=== PATIENT | female | born 1985 | race Caucasian/White ===

== ENCOUNTER 2016-09-30 20:01 | Emergency (ER) | payer MEDICAID, OTHER ==
[~2016-09-30] VITALS: Ht 154.9 cm; Wt 60.0 kg
[2016-09-30 20:01] VITALS: BP 109/67; PULSE 84; RESP 16; TEMP 98.2; O2SAT 100
[~2016-09-30 20:01] MED LIST: AZIT500I PO; DOXY100T PO
--- NOTE | 2016-09-30 20:33 | PD ---
HPI Chief Complaint: Oral / Dental Pain or Problem Time Seen by Provider: 20:31 Travel History International Travel<30 days: No Contact w/Intl Traveler<30days: No Traveled to known affect area: No History of Present Illness HPI Patient comes in complaining of left lower molar tooth pain ongoing for approximately 2 weeks when broke off while eating a crouton. Patient states over the past couple days pain is getting progressively worse and today pain moved into her left ear. Patient is aching throbbing like in nature. Patient taking ibuprofen for the pain with minimal relief of symptoms. Pain is worse with eating or drinking anything. Patient also has concerns over right pinky finger pain that began today after wrestling around her kids. Patient denies any known direct trauma. Pain is worse with palpation and certain movement. Pain is achy like in nature and radiates proximally. PFSH Past Medical History Blood Disorders: No Diminished Hearing: No Reproductive: Yes (OVARIAN CYST) Immunizations Current: Yes Tetanus Vaccination: < 5 Years Influenza Vaccination: No ?: Not LMP: 09/13/16 : 8 Para: 4 Miscarriage: 2 : 1 Tubal Ligation: Yes Past Surgical History Section: Yes Gynecologic Surgery: Yes (tubal ligation, X 4) Social History Alcohol Use: No Tobacco Use: Yes (08/13 PPD) Substance Use: No Allergies-Medications (Allergen,Severity, Reaction): Coded Allergies: No Known Allergies (Verified , 09/30/16) Reported Meds & Prescriptions Reported Meds & Active Scripts Active Naprosyn (Naproxen) 500 Mg Tab 500 Mg PO Q12HR PRN Clindamycin (Clindamycin HCl) 150 Mg Cap 2 Tab PO Q6H 10 Days Review of Systems Except as stated in HPI: all other systems reviewed are Neg Physical Exam Narrative GENERAL: Well-developed, well nourished, in no acute distress, and non-ill appearing. SKIN: Warm and dry. HEAD: Atraumatic. Normocephalic. EYES: Pupils equal and round. EOMI. No scleral icterus. No injection or drainage. ENT: No nasal bleeding or discharge. Mucous membranes pink and moist. Tympanic membranes pearly ovalle bilaterally. Posterior pharynx is erythematous without exudate. Uvula is midline. Poor dentition with no visible palpable abscess noted. Floor the mouth, submandibular, submental are all soft to palpation. NECK: Trachea midline. No cervical lymphadenopathy. Supple. No nuclear rigidity. CARDIOVASCULAR: Radial pulses 2+ intact bilaterally. Capillary refill less than 2 seconds. RESPIRATORY: No accessory muscle use. No respiratory distress. MUSCULOSKELETAL: No obvious deformities. No clubbing. No cyanosis. No edema. Full range of motion. Wrist: FROM and equal BL with passive flexion, extension, and pronation/supination. Capillary refill less than 2 seconds distal to injury and equal BL. FROM distal to injury and equal BL. Strength distal to injury equal BL. NV intact distal to injury. Flexion and extension of thumb equal BL. Equal strength and movement with abduction/adductions of BL fingers. Devulcanizer Operator strength equal BL. No tenderness to the anatomical snuffbox. Patient reports tenderness to palpation over the proximal phalanx of right pinky finger. NEUROLOGICAL: Awake and alert. No obvious cranial nerve deficits. Motor grossly within normal limits. Normal speech. PSYCHIATRIC: Appropriate mood and affect; insight and judgment normal. Data Data Last Documented VS Vital Signs Date Time Temp Pulse Resp B/P Pulse Ox O2 Delivery O2 Flow Rate FiO2 09/30/16 20:20 16 09/30/16 20:01 98.2 84 109/67 100 Orders Finger (Vkg1exf) (09/30/16 ) Splint Or Brace Apply/Monitor (09/30/16 20:59) Finger Splint (09/30/16 ) MDM Medical Decision Making Medical Screen Exam Complete: Yes Emergency Medical Condition: Yes Differential Diagnosis Dental abscess, dental infection, dentalgia, fracture, sprain, contusion, other Narrative Course The patient presented with dental pain. There is no fever. There is no significant facial swelling or evidence of cellulitis. There is poor dentition but no evidence of drainable abscess at this time. There is no evidence of significant deep or invading abscess at this time. The patient will be placed on antibiotics and pain medication. The patient was instructed to follow up with a dentist. The patient was given the dental referral sheet. Warnings were discussed with the patient regarding worsening of infection. The patient is to return if pain worsens, develops progressive swelling or facial redness or fever. The patient agrees with plan. There is no clinical evidence for fracture. There is no clinical evidence to suspect bony injury by exam. Radiographic examination revealed no fracture seen at this time. No obvious ligamental injury or internal derangement is noted at this time. The distal extremity appears neurovascularly intact, without evidence of neurovascular injury nor compartment syndrome. Tendon exam also was intact. The effected finger was splinted. The patient was discharged on pain medication along with sprain and splint care instructions and given warnings for vascular compromise. The patient is to follow up with primary care provider. The patient agrees with plan. Patient in no obvious distress upon re-evaluation. All pertinent Radiology result(s) discussed with patient. Patient was asked if they wanted to speak to my attending, which the patient did not wish to do at this time. Any questions/ concerns in reference to patient diagnosis/condition discussed and clarified prior to patient's discharge. Reinforced sheer importance of close follow up with patient's primary physician or primary care clinic. Instructed patient to return to ED immediately, if symptoms return/worsen. Pt showed understanding of above instructions. Further instructions and recommendations were detailed in discharge paperwork. Pt ambulated without difficulty out of ED at discharge. Diagnosis Primary Impression: Dentalgia Additional Impression: Sprain of finger of right hand Qualified Code: S63.619A - Sprain of finger of right hand, initial encounter Patient Instructions: Dental Abscess (ED), Dental Caries (DC), Finger Sprain ( ED), General Instructions, Splint Care (DC) Additional Instructions: Follow-up with your primary care physician and dentist as soon as possible. Rinse mouth with warm salt water gargles. Take all medication as prescribed. Wear finger splint as needed for comfort until reevaluated. Return to the emergency department if symptoms get worse. Med/Other Pt SpecificInfo: Prescription(s) given Scripts Naproxen (Naprosyn)500 Mg Gri475 Mg PO Q12HR PRN (PAIN SCALE 1 TO 10) #14 TAB Ref 0 Prov:Jocelyn Rasheed MD 09/30/16 Clindamycin 150 Mg Cap2 Tab PO Q6H 10 Days Ref 0 Prov:Jocelyn Rasheed MD 09/30/16 Disposition: 01 DISCHARGE HOME Condition: Stable Matt Cisneros Sep 30, 2016 20:33
--- NOTE | 2016-09-30 20:54 | RADRPT ---
EXAM DATE/TIME: 09/30/2016 20:55 [facility] COMPARISON: No previous studies available for comparison. INDICATIONS : Right fifth digit pain from trauma. MEDICAL HISTORY : None. SURGICAL HISTORY : None. ENCOUNTER: Initial ACUITY: 1 day PAIN SCORE: 6/10 LOCATION: Right hand FINDINGS: Examination of the fifth digit of the right hand demonstrates no evidence of fracture or dislocation. No radiopaque foreign bodies are seen. The soft tissues are intact. CONCLUSION: Unremarkable examination of the right fifth finger. Jeferson Callahan MD on September 30, 2016 at 20:51 Board Certified Radiologist. This report was verified electronically.
[2016-09-30] MEDS ORDERED: NAPR500 PO (21:01)
[2016-09-30] MEDS ORDERED: CLIN1CAP5 PO (21:01)
== END 2016-09-30 21:30 | disposition home or self-care (01) ==
LOC: NEPB 20:01
DX: K08.89 Other specified disorders of teeth and supporting structures (principal); S63.616A Unspecified sprain of right little finger, initial encounter; H92.02 Otalgia, left ear; F17.210 Nicotine dependence, cigarettes, uncomplicated; X58.XXXA Exposure to other specified factors, initial encounter; Y93.83 Activity, rough housing and horseplay; Y99.8 Other external cause status
CPT/HCPCS: 29130; 73140

== ENCOUNTER 2016-10-11 13:48 | Emergency (ER) | payer MEDICAID ==
[~2016-10-11 13:48] MED LIST changes: -AZIT500I PO; +CLIN1CAP5 PO; -DOXY100T PO; +NAPR500 PO
[2016-10-11 13:50] VITALS: BP 145/102; PULSE 148; RESP 24; TEMP 97.7; O2SAT 92
--- NOTE | 2016-10-11 14:57 | PD ---
HPI Chief Complaint: Oral / Dental Pain or Problem Time Seen by Provider: 14:57 Travel History International Travel<30 days: No Contact w/Intl Traveler<30days: No Traveled to known affect area: No History of Present Illness HPI 31-year-old female presents the emergency Department with worsening dental pain. Patient was seen on 10/01/16, and started on clindamycin and Naprosyn twice daily. Patient is scheduled to have the tooth extracted in 2 days. Patient denies fever or chills but has increasing pain extending into the left ear. She states it is sensitive to hot and cold as well. Patient states that the pain is 10 over 10 at this time. Patient has no swelling of the throat or difficulty swallowing. No significant swelling in the neck as well. Patient has no known drug allergies. PFSH Past Medical History Blood Disorders: No Diminished Hearing: No Reproductive: Yes ([employer] CYST) Immunizations Current: Yes Tetanus Vaccination: < 5 Years ?: Not LMP: 09/14/16 : 8 Para: 4 Miscarriage: 2 : 1 Tubal Ligation: Yes Past Surgical History Section: Yes Gynecologic Surgery: Yes (tubal ligation, X 4) Social History Alcohol Use: No Tobacco Use: Yes (/2 PPD) Substance Use: No Allergies-Medications (Allergen,Severity, Reaction): Coded Allergies: No Known Allergies (Verified , 09/30/16) Reported Meds & Prescriptions Reported Meds & Active Scripts Active Naprosyn (Naproxen) 500 Mg Tab 500 Mg PO Q12HR PRN Clindamycin (Clindamycin HCl) 150 Mg Cap 2 Tab PO Q6H 10 Days Review of Systems Except as stated in HPI: all other systems reviewed are Neg General / Constitutional: No: Fever Eyes: No: Visual changes HENT: Positive: Dental Difficulties, No: Headaches, Vertigo, Lightheadedness, Sore Throat, Rhinitis, Rhinorrhea, Neck Stiffness, Neck Pain, Ear Discharge, Earache Cardiovascular: No: Chest Pain or Discomfort Respiratory: No: Shortness of Breath Gastrointestinal: Positive: Nausea, No: Abdominal Pain Genitourinary: No: Dysuria Musculoskeletal: No: Pain Skin: No Rash Neurologic: No: Weakness Psychiatric: No: Depression Endocrine: No: Polydipsia Hematologic/Lymphatic: No: Easy Bruising Physical Exam Narrative GENERAL: Patient is a moderate distress and tearful. SKIN: Warm and dry. Normal color. Normal turgor. HEAD: Atraumatic. Normocephalic. EYES: Pupils equal and round. No scleral icterus. No injection or drainage. ENT: No nasal bleeding or discharge. Mucous membranes pink and moist. Patient has obvious large caries and the #17 tooth with localized swelling and erythema and tenderness. Sign of Vitaliy angina or airway compromise. No significant tonsillitis or lymphangitis. NECK: Trachea midline. No JVD. Neck is supple nontender. CARDIOVASCULAR: Regular rate and rhythm. RESPIRATORY: No accessory muscle use. Clear to auscultation. Breath sounds equal bilaterally. MUSCULOSKELETAL: Extremities without clubbing, cyanosis, or edema. No obvious deformities. NEUROLOGICAL: Awake and alert. No obvious cranial nerve deficits. Motor grossly within normal limits. Five out of 5 muscle strength in the arms and legs. Normal speech. PSYCHIATRIC: Appropriate mood and affect; insight and judgment normal. Data Data Last Documented VS Vital Signs Date Time Temp Pulse Resp B/P Pulse Ox O2 Delivery O2 Flow Rate FiO2 10/11/16 13:50 97.7 148 24 145/102 92 Room Air Orders Amoxicil-Clavulanate (Augmentin) (10/11/16 15:30) [id number] Liq (Magic Mouthwash Adul (10/11/16 15:30) Ketorolac Inj (Toradol Inj) (10/11/16 15:30) MDM Medical Decision Making Medical Screen Exam Complete: Yes Emergency Medical Condition: Yes Differential Diagnosis Dental pain. Dental abscess. Need for dental follow-up. Narrative Course Patient is in pain but medically stable at time of exam. No suspicion of Vitaliy's angina is present. Patient is given Toradol 60 mg IM, and 875 Augmentin by mouth. Patient is given Magic mouthwash as well. Patient is felt to be medically stable for discharge. Patient is given a prescription for Augmentin 875 twice a day 7 days. Patient is given a prescription for ibuprofen 800 mg 3 times daily with food. # 30. Patient is given a prescription for Magic mouthwash 1-2 teaspoons every 2 hours when necessary pain. 120 mL to 1 refill. Patient is given tramadol 50 mg one every 6 hours when necessary pain #20. Patient is to follow with her dentist as scheduled or return to emergency Department with worsening symptoms as needed. Diagnosis Primary Impression: Dental abscess Referrals: Dentist Patient Instructions: Dental Abscess (ED), General Instructions Additional Instructions: Patient is given Toradol 60 mg IM, and 875 Augmentin by mouth. Patient is given Magic mouthwash as well. Patient is felt to be medically stable for discharge. Patient is given a prescription for Augmentin 875 twice a day 7 days. Patient is given a prescription for ibuprofen 800 mg 3 times daily with food. # 30. Patient is given a prescription for Magic mouthwash 1-2 teaspoons every 2 hours when necessary pain. 120 mL to 1 refill. Patient is given tramadol 50 mg one every 6 hours when necessary pain #20. Patient is to follow with her dentist as scheduled or return to emergency Department with worsening symptoms as needed. Med/Other Pt SpecificInfo: Prescription(s) given Disposition: 01 DISCHARGE HOME Condition: Stable Eliecer Ramirez Oct 11, 2016 14:57
[2016-10-11] MEDS ORDERED: AMOXICILLIN/CLAVULANATE K 875 MG TAB PO ONE (15:30)
[2016-10-11] MEDS ORDERED: NYSTAT/DIPHENHY/LIDO MOUTHWASH (Adult) 120ML SWISH-SWAL ONE (15:30)
[2016-10-11] MEDS ORDERED: KETOROLAC TROMETHAMINE 60 MG/2 ML (IM) VIAL IM ONE (15:30)
[2016-10-11] MEDS ORDERED: TRAM50TA PO ×2 (16:26→16:27)
[2016-10-11] MEDS ORDERED: IBUP800T23 PO (16:26)
[2016-10-11] MEDS ORDERED: AUGM875T PO (16:26)
[2016-10-11] MEDS ORDERED: MAGICADU2 SWISH-SWAL (16:33)
== END 2016-10-11 16:37 | disposition home or self-care (01) ==
LOC: NEPB 13:48
DX: K04.7 Periapical abscess without sinus (principal); H92.02 Otalgia, left ear; F17.210 Nicotine dependence, cigarettes, uncomplicated
CPT/HCPCS: 96372; 99282; J1885